=== PATIENT | male | born 1990 | race Native Hawaiian/Other Pacific Islander ===

== ENCOUNTER 2017-12-12 22:40 | Emergency (ER) | payer OTHER ==
[2017-12-12 22:45] VITALS: BP 137/96; PULSE 76; TEMP 98; O2SAT 98
--- NOTE | 2017-12-12 23:35 | C.PDOC ---
History Of Present Illness 27 year old male presents to the ED c/o pain and swelling to left great toe for the past 3 days. Patient reports pain worsened today and became painful on ambulation. Patient states never having similar symptoms in the past, did not take any pain medication at home. Patient denies injury, fall, trauma, weakness , numbness. Time Seen by Provider: 12/12/17 22:50 Chief Complaint (Nursing): Lower Extremity Problem/Injury History Per: Patient History/Exam Limitations: no limitations Onset/Duration Of Symptoms: Days (3) Current Symptoms Are (Timing): Still Present Recent travel outside of the [place]: No Additional History Per: Patient - Ankle/Foot Description Of Injury: Other Currently Unable To: Bear Weight Past Medical History Reviewed: Historical Data, Nursing Documentation, Vital Signs Vital Signs: Last Vital Signs Temp 98 F 12/12/17 22:43 Pulse 76 12/12/17 22:43 Resp 20 12/12/17 23:55 BP 137/96 H 12/12/17 22:43 Pulse Ox 98 12/13/17 01:42 - Medical History PMH: No Chronic Diseases Surgical History: No Surg Hx Family History: States: Unknown Family Hx - Social History Hx Alcohol Use: No Hx Substance Use: No Review Of Systems Constitutional: Negative for: Fever, Chills Gastrointestinal: Negative for: Nausea, Vomiting Musculoskeletal: Positive for: Foot Pain. Negative for: Leg Pain Skin: Negative for: Rash Neurological: Negative for: Weakness, Numbness Physical Exam - Physical Exam Appears: Non-toxic, No Acute Distress Skin: Normal Color, Warm, Dry Head: Atraumatic, Normacephalic Eye(s): bilateral: Normal Inspection Extremity: Normal ROM, Tenderness (left 1st MTP ), No Calf Tenderness, Capillary Refill (< 2 seconds), No Deformity, Swelling (minimal to left 1st MTP with warmth), No Other (erythema) Pulses: Left Dorsalis Pedis: Normal, Right Dorsalis Pedis: Normal Neurological/Psych: Oriented x3, Normal Speech, Normal Motor, Normal Sensation Gait: Steady (with a limp due to pain) ED Course And Treatment O2 Sat by Pulse Oximetry: 98 (ON RA) Pulse Ox Interpretation: Normal - Other Rad Left foot X-Ray X-Ray: Interpreted by Me, Viewed By Me Interpretation: No acute pathologies Progress Note: Plan: - Motrin 600 mg PO. - Left foot X-Ray. On reassessment, patient is resting comfortably, and is in no acute distress. Patient was instructed to follow up with physician/clinic and podiatry in 1-2 days for further evaluation. Disposition Counseled Patient/Family Regarding: Diagnosis, Need For Followup, Rx Given - Disposition [facility]errals: [facility] [Outside] Podiatry Clinic [Outside] Disposition: HOME/ ROUTINE Disposition Time: 23:33 Condition: STABLE Additional Instructions: Elevate leg Apply warm compress to area Take motrin as needed for pain Follow up with your doctor or in clinic Return to ER if worse Prescriptions: Ibuprofen [Motrin] 600 mg PO Q6H #20 tab Instructions: Metatarsalgia (DC) Forms: [employer] ([place]) - Clinical Impression Clinical Impression: Pain of left great toe - PA / FUR BLOWER / Resident Statement MD/DO has reviewed & agrees with the documentation as recorded. - Scribe Statement The provider has reviewed the documentation as recorded by the Scribe Ivan Barr All medical record entries made by the Scribe were at my direction and personally dictated by me. I have reviewed the chart and agree that the record accurately reflects my personal performance of the history, physical exam, medical decision making, and the department course for this patient. I have also personally directed, reviewed, and agree with the discharge instructions and disposition.
[2017-12-12 23:55] VITALS: RESP 20
--- NOTE | 2017-12-13 08:07 | RAD ---
PROCEDURE: Radiographs of the left great toe. TECHNIQUE:: AP radiograph of the left foot, with oblique and lateral view of the left great toe. COMPARISON: None. FINDINGS: BONES: No fracture. JOINTS: Minimal 1st metatarsal-phalangeal joint arthrosis including trace hypertrophy SOFT TISSUES: Minimal increased swelling and density medial to 1st metatarsal head OTHER FINDINGS: None. IMPRESSION: No fracture or dislocation. No erosion. Minimal 1st metatarsal-phalangeal joint arthrosis including trace hypertrophy Minimal increased swelling and density medial to 1st metatarsal head
== END 2017-12-12 23:54 | disposition home or self-care (01) ==
LOC: C.ER 22:40
DX: M79.675 Pain in left toe(s) (principal)